=== PATIENT | female | born 1990 | race Caucasian/White ===

== ENCOUNTER 2018-10-11 12:42 | Emergency (ER) | payer MEDICAID ==
--- NOTE | 2018-10-11 13:42 | ED Physician Chart ---
ED Chief Complaint/HPI - Patient Information Date Seen:: 10/11/18 Time Seen:: 12:45 Chief Complaint:: Headache since 6 pm yesterday. History of Present Illness:: Pt came in by private auto because of headache since 6 pm yesterday. HUERTA is characterized as throbbing, constant, and localized in frontal region. Pt had transient nausea/vomiting last evening with vomitus consisted gastric content. No hematemesis. No fever. No mentation change. Pt states that she slipped on wet floor yesterday morning and hit the back of head. No LOC. No weakness or numbness. No ataxia. No visual changes in terms of blurry vision or diplopia. Pt has had posterior neck pain. Pt has not had any analgesic today. Allergies:: Allergies Allergy/AdvReac Type Severity Reaction Status Date / Time No Known Allergies Allergy Verified 10/11/18 12:53 Vitals:: Vital Signs - 8 hr 10/11/18 12:53 Temp 99.4 F HR 80 RR 16 BP 110/71 O2 Sat % 97 Historian:: Patient Family MD/PCP:: unknown. LMP:: 10/04/2018 Review:: Nurse's Note Reviewed ED Review of Systems - Review of Systems General/Constitutional: No fever, No chills, No weight loss, No weakness, No loss of appetite Skin: No rash, No bruising Head: Headache, No light-headedness Eyes: No loss of vision, No pain, No diplopia ENT: No earache, No nasal drainage, No sore throat, No tinnitus Neck: No neck pain, No swelling, No thyromegaly, No stiffness, No mass noted Cardio Vascular: No chest pain, No edema Pulmonary: No SOB, No cough, No wheezing GI: Nausea, No vomiting (transient), No pain G/U: No dysuria, No frequency, No hematuria [employer] Train [employer]: No vaginal discharge, No abnormal vaginal bleed Musculoskeletal: No back pain Endocrine: No polyuria, No polydipsia Psychiatric: Prior psych history (anxiety at age 12), No depression, No suicidal ideation, No homicidal ideation, No auditory hallucination, No visual hallucination Hematopoietic: No bruising, No lymphadenopathy Allergic/Immuno: No urticaria, No angioedema Neurological: No syncope, No focal symptoms, No weakness, No paresthesia, Headache, No seizure, No confusion, No vertigo ED Past Medical History - Past Medical History Past Medical History: No significant medical hx Family History: Heart disease (father), Diabetes Melitus (in both parents.), HTN (in mother), Cancer (in MGF, P aunt.) Social History: Non Smoker, Alcohol (occasional), No Drug Use, Single, Lives Alone Employment:: scrap yard worker. Surgical History: other (Bilateral breast augmentation about 6 y/a.) Psychiatricy History: None Medication: None Family Medical History - Family Member Mother History Unknown: Yes ED Physical Exam - Physical Examination General/Constitutional: Awake, Well-developed, well-nourished (female), No distress, Non-toxic appearing, Ambulatory Other Gen/Cons comments:: Breathes comfortably, speaks clearly, and interacts appropriately. Pt is ambulatory without difficulty. Head: Atraumatic Eyes: Lids, conjuctiva normal, PERRL, EOMI Other Eyes comments:: Fundi: not well visualized. Skin: Nl inspection, No ecchymosis, Well hydrated, No lymphadenopathy ENMT: External ears, nose nl, TM canals nl, Nasal exam nl, Oropharynx nl Neck: Nontender, Full ROM w/o pain, No nuchal rigidity, No mass, No stridor Respiratory: Nl effort/Exclusion, Clear to Auscultation, No Wheeze/Rhonchi/Rales Cardio Vascular: RRR, No murmur, gallop, rubs GI: No tenderness/rebounding/guarding, No organomegaly, Normal BS's, Nondistended Other GI comments:: Abdomen is soft. Extremities: No tenderness or effusion, No edema Neuro/Psych: Alert/oriented (oriented x 3), DTR's symmetric, Mood normal, Normal gait, No focal deficits Other Neuro/Psych comments:: CN II to XII are grossly intact. Cerebellar exam (F to N, MICHELLE): normal. ED Labs/Radiology/EKG Results - Lab Results Results: 1625 Pt has been stable without distress. CT reports just became available. When I returned to pt's bed, she had already walked out. She did not notify nursing staff or myself prior to leaving. Pt eloped without complete of this ER visit. - Radiology Results Results: CT brain and c-spine: NAD official reports per Dr. Valeriano Gilliland, radiologist. ED Septic Shock - . Is Septic Shock (SBP<90, OR Lactate>4 mmol\L) present?: No - <6hrs of presentation: Vital Signs: Vital Signs - 8 hr 10/11/18 12:53 Temp 99.4 F HR 80 RR 16 BP 110/71 O2 Sat % 97 ED Reassessment (Disposition) - Reassessment Reassessment Condition:: Improved - Diagnosis Diagnosis:: Scalp and neck contusion by hx. Stable. - Patient Disposition Discharge/Transfer:: Meri/ROSITA Time:: 16:25 Condition at Disposition:: Stable, Improved
--- NOTE | 2018-10-12 09:38 | Diagnostic Imaging Report ---
CT scan of the brain without contrast History: Headache, trauma Total DLP equals 591 CTDI equals 34.8 Axial sections were obtained from the base of the skull to the vertex. There is a normal ventricular system size. No focal parenchymal lesions are seen. No evidence of any mass effect or shift of midline structures. No extra-axial masses or abnormal fluid collections. Impression: Negative examination
--- NOTE | 2018-10-12 09:39 | Diagnostic Imaging Report ---
CT scan cervical spine History: Pain, trauma Total DLP equals 515 CTDI equals 23.2 Axial sections were obtained through the cervical spine region. Additional sagittal and coronal reformatted images are provided. No focal bony lesions are seen. Specifically, no fractures are identified. There is limited visualization of the margins of the cervical spinal cord. No obvious extradural soft tissue abnormalities are seen. The prevertebral soft tissues appear normal. Impression: No acute abnormalities
== END 2018-10-11 16:20 ==
LOC: ER 12:42
DX: S00.03XA Contusion of scalp, initial encounter (principal); S10.83XA Contusion of other specified part of neck, initial encounter; W01.198A Fall on same level from slipping, tripping and stumbling with subsequent striking against other object, initial encounter; Y93.89 Activity, other specified; Y92.89 Other specified places as the place of occurrence of the external cause; Y99.8 Other external cause status
CPT/HCPCS: 70450-TC; 72125-TC; 81025-TC; Z7610